=== PATIENT | female | born 1985 | race Caucasian/White ===

== ENCOUNTER 2023-11-16 11:32 | Emergency (ER) | payer MEDICAID, MEDICARE ==
[~2023-11-16] VITALS: Ht 154.9 cm; Wt 98.6 kg
[~2023-11-16 11:32] MED LIST: FLUO20CA39 PO
[2023-11-16 13:00] LABS: BASOPHILS # (AUTO) 0.1 X10'3 (0-0.2); BASOPHILS % (AUTO) 0.8 % (0-1); EOSINOPHILS # (AUTO) 0.1 X10'3 (0-0.9); EOSINOPHILS % (AUTO) 1.8 % (0-6); HEMATOCRIT 42.4 % (35.0-45.0); HEMOGLOBIN 13.8 g/dl (12.0-16.0); LYMPHOCYTES # (AUTO) 1.7 X10'3 (1.1-4.8); LYMPHOCYTES % (AUTO) 23.2 % (21-51); MEAN CORPUSCULAR HEMOGLOBIN 27.7 PG (27.0-31.0); MEAN CORPUSCULAR HGB CONC 32.4 g/dL (33.0-36.5); MEAN CORPUSCULAR VOLUME 85.4 FL (78-98); MEAN PLATELET VOLUME 7.4 FL (7.4-10.4); MONOCYTES # (AUTO) 0.5 X10'3 (0-0.9); MONOCYTES % (AUTO) 6.5 % (2-12); NEUTROPHILS % (AUTO) 67.7 % (42-75); PLATELET COUNT 314 X10'3 (140-440); RED BLOOD COUNT 4.97 X10'6 (4.20-5.60); RED CELL DISTRIBUTION WIDTH 15.9 % (11.5-14.5); WHITE BLOOD COUNT 7.4 X10'3 (4.5-11.0)
[2023-11-16 13:15] LABS: HCG SERUM QL NEGATIVE
[2023-11-16 13:20] LABS: ALANINE AMINOTRANSFERASE 26 U/L (12-78); ALBUMIN 3.3 G/DL (3.4-5.0); ALBUMIN/GLOBULIN RATIO 0.8 (1.1-1.5); ALKALINE PHOSPHATASE 80 IU/L (46-116); ANION GAP 8 (8-16); ASPARTATE AMINO TRANSFERASE 12 U/L (10-37); BILIRUBIN,TOTAL 0.6 MG/DL (0.1-1.0); BLOOD UREA NITROGEN 11 MG/DL (7-18); BUN/CREATININE RATIO 14.7 (10.0-20.0); CALCIUM 8.7 MG/DL (8.5-10.1); CHLORIDE 105 MMOL/L (99-107); CREATININE 0.75 MG/DL (0.40-0.90); GLUCOSE 92 MG/DL (70-104); POTASSIUM 4.1 MMOL/L (3.5-5.1); SODIUM 140 MMOL/L (135-145); TOTAL CARBON DIOXIDE 26.6 MMOL/L (24-32); TOTAL PROTEIN 7.5 G/DL (6.4-8.2); eCRCL 79 ML/MIN; eGFR 88 ML/MIN
[2023-11-16 13:23] LABS: APTT 29 SECONDS (22-32); PROTHROMBIN TIME 10.3 SECONDS (9.0-12.0)
[2023-11-16 13:43] VITALS: BP 100/58; PULSE 57; O2SAT 96
[2023-11-16 14:26] VITALS: RESP 16
[2023-11-16] MEDS: ketorolac trometh. 30mg/ml inj. IM ONE (14:26)
[2023-11-16] MEDS: dexamethasone sod phosphate 10mg/ml inj IM STA (14:27)
[2023-11-16 14:38] VITALS: TEMP 98
== END 2023-11-16 14:40 | disposition home or self-care (01) ==
LOC: ER 11:33
DX: M25.461 Effusion, right knee (principal); M25.561 Pain in right knee; M71.21 Synovial cyst of popliteal space [Baker], right knee; R79.1 Abnormal coagulation profile; Z88.2 Allergy status to sulfonamides; Z79.899 Other long term (current) drug therapy
CPT/HCPCS: 36415; 73564; 80053; 84703; 85025; 85610; 85651; 85730; 86140; 93971; 96372; 99285; J1100; J1885

== ENCOUNTER 2025-03-14 12:10 | Emergency (ER) | payer MEDICAID ==
[~2025-03-14] VITALS: Ht 154.9 cm; Wt 103.2 kg
[~2025-03-14 12:10] MED LIST changes: -FLUO20CA39 PO; +FLUO20CA41 PO
[2025-03-14 12:18] VITALS: BP 141/92; PULSE 63; RESP 16; TEMP 98.7; O2SAT 99
--- NOTE | 2025-03-14 12:27 | Physician Documentation ---
HPI ~ General Chief Complaint: Tooth Problem Stated Complaint: TOOTH PAIN Time Seen by MD: 12:50 Primary Medical Doctor: Martin History of Present Illness HPI Comment Is a very pleasant 39-year-old female that presents to the emergency department for evaluation of dental pain to the right lower gumline at approximately the 3rd molar. Patient reports he has had significant pain over the last several days. Patient reports he has a significant history of broken teeth and dental caries. Patient has significant lymphadenopathy no difficulty swallowing no difficulty with her airway no other reported symptoms at this time. Patient denies fever chills nausea vomiting diarrhea this time. Medication Reconciliation Allergies: Coded Allergies: Sulfa (Sulfonamide Antibiotics) (Verified Allergy, Intermediate, 03/14/25) Scheduled Fluoxetine Hcl* (Prozac*), 20 MG PO DAILY, (Reported) Past Medical History Past Medical History: No Pertinent History Past Surgical History: no surgical history Alcohol Use: None Lives with: Spouse, Other Review of Systems ROS As stated above in the HPI, otherwise all systems are reviewed and negative. Physical Exam Vital Signs: Temperature: 98.7, Source: Temporal, Heart Rate: 63, Respiratory Rate: 16, BP: 141/92, Pulse Oximetry: 99, Weight: 103.180 Oxygen Flow Rate: 0 Physical Exam VITALS: Reviewed and as above. GENERAL: Alert, no apparent distress. HEENT: Normocephalic, atraumatic, PERRL, EOMI, dry mucosa, erythema and swelling noted at the lower right gumline associated with the abscess of the 3rd molar noted during examination, lymphadenopathy noted to the right submandibular lymph nodes, no submental lymphadenopathy noted. RESPIRATORY: Lungs clear, normal breath sounds, no respiratory distress. CHEST: No accessory muscle use, no retractions CV: Regular rate, rhythm, no edema, no murmur, No: JVD GI: Soft, non-tender, bowels sounds present, no rebound, guarding, or rigidity BACK: No CVA tenderness, or swelling MUSCULOSKELETAL No deformities, no edema SKIN: Warm and dry, no rash NEURO: Oriented x4, No motor or sensory deficit PSYCH: Normal mood and affect, no agitation Progress Results/Orders Results/Orders Vital Signs 03/14/25 12:18 Temp 98.7 Pulse 63 Resp 16 B/P (MAP) 141/92 Pulse Ox 99 O2 Flow Rate 0 Medical Decision Making Additional information obtaine: other Findings Disposition: Patient is a 39-year-old female presenting with acute tooth pain and abscess at the lower left third molar, with right submandibular lymphadenopathy. No airway compromise or dysphagia. History notable for dental caries and prior tooth fractures. Assessment: Findings are consistent with a localized acute apical abscess with evidence of local lymph node involvement, but without systemic symptoms (no fever, no malaise, no airway or swallowing difficulty). The patient is immunocompetent. Medical Decision-Making: Antibiotic therapy: Initiated amoxicillin-clavulanate (Augmentin) per FDA labeling and ADA guidelines, as this is appropriate for odontogenic infections with local spread. Amoxicillin-clavulanate is preferred for broader coverage, especially in cases with lymphadenopathy or failed first-line therapy. Analgesia: Recommended acetaminophen and ibuprofen as needed for pain, consistent with ADA guidelines for acute dental pain management. NSAIDs and acetaminophen are first-line for dental pain, with maximum daily doses not to exceed 2,400 mg for ibuprofen and 4,000 mg for acetaminophen. Definitive care: Patient instructed to follow up with primary care provider and dental specialist for definitive management (e.g., root canal, extraction, or incision/drainage), as antibiotics and analgesics are a bridge until definitive dental treatment is available. Return precautions: Advised to return to the ED for any worsening symptoms, including increased swelling, difficulty swallowing or breathing, fever, or other concerning changes. Monitoring: Patient educated on potential adverse effects of antibiotics, including rash, diarrhea, and signs of hepatic dysfunction. Instructed to discontinue antibiotics 24 hours after symptom resolution and to seek care if symptoms persist or worsen. Summary: Patient stable for discharge with oral antibiotics and analgesics, clear instructions for follow-up and return precautions, in accordance with current evidence-based guidelines. Differential Dx:Considerations: Include: Alveolar fracture, Alveolar osteitis, ANUG, Facial Cellulitis, Periapical abscess, Peridontal abscess, Post-extraction bleeding, Pulpitis, Tooth avulsion, Tooth eruption, Tooth Fracture, Trigeminal neuralgia, Tooth subluxation, Other Departure Disposition: 01 HOME / SELF CARE / HOMELESS Impression: Primary Impression: Dental abscess Additional Impressions: Toothache Dental caries Condition: Stable Discharge Instructions: Dental Caries, Adult, Dental Abscess, Dental Pain Additional Instructions: You were seen today for tooth pain and an abscess (infection) in your lower left jaw at the third molar. You have a history of dental caries and tooth fractures, and swelling of the right submandibular lymph node was noted. You do not have difficulty swallowing or breathing. Medications: You have been prescribed Augmentin (amoxicillin-clavulanate) to treat the infection. Take the medication exactly as directed. If you experience rash, severe diarrhea, abdominal pain, or other concerning side effects, stop the medication and seek medical attention. For pain, use ibuprofen (up to 2,400 mg per day) and/or acetaminophen (up to 4,000 mg per day) as needed. These are the recommended first-line medications for dental pain and are generally more effective and safer than opioid medications. Do not exceed the maximum daily doses. If you have kidney disease, liver disease, or other contraindications, consult your provider before use. Follow-up: It is important to see your primary care provider or dentist as soon as possible for definitive dental treatment (such as drainage, root canal, or extraction). Antibiotics and pain medications are a temporary measure and do not resolve the underlying dental problem. If you cannot arrange dental follow-up within 12 days, or if your pain does not improve, contact your healthcare provider. Return to the Emergency Department if you experience: Worsening pain, swelling, or redness Difficulty swallowing, breathing, or opening your mouth Fever, chills, or feeling generally unwell New or concerning symptoms discussed today Other instructions: Complete the full course of antibiotics unless instructed otherwise. If your symptoms resolve completely, you may discontinue antibiotics 24 hours after resolution. Do not save or share leftover antibiotics. Use Tylenol and ibuprofen as needed for discomfort. Avoid opioid pain medications unless specifically prescribed and discussed with your provider. Maintain good oral hygiene and avoid chewing on the affected side until evaluated by a dentist. If you have any questions or concerns, please contact your healthcare provider. Referrals: NO PRIMARY CARE PROVIDER (PCP) Prescriptions Amox Tr/Potassium Clavulanate (Augmentin 875-125 Tablet) 1 Each Tablet 1 TAB PO Q12H for 10 Days, #20 TAB Prov: CAITLYN HARMAN 03/14/25 Education Educated: Patient Educated regarding: diagnosis, treatment, need for follow up Signature Scribe Signature: A Attestation: Scribed for Emergency,Department by SELAM Blunt . 03/14/25 12:58 CAITLYN HARMAN Mar 14, 2025 12:27
[2025-03-14] MEDS ORDERED: AMOX-117 PO (12:57)
== END 2025-03-14 13:04 | disposition home or self-care (01) ==
LOC: ER 12:11
DX: K04.7 Periapical abscess without sinus (principal); K02.9 Dental caries, unspecified; Z88.2 Allergy status to sulfonamides
CPT/HCPCS: 99283